=== PATIENT | female | born 1960 | race Two or more races ===

== ENCOUNTER 2023-01-08 21:28 | Inpatient (IN) | payer MEDICAID ==
[~2023-01-08] VITALS: Ht 157.5 cm; Wt 87.3 kg
[2023-01-08] MEDS ORDERED: MORPHINE SULFATE 4 MG/ML SYRINGE IVP ONE (21:45)
[2023-01-08 22:05] LABS: BASOPHILS % (AUTO) 0.9 % (0.0-2.0); EOSINOPHILS % (AUTO) 2.9 % (1.0-6.0); MONOCYTES # (AUTO) 0.6 K/uL (0.1-1.0)
[2023-01-08] MEDS ORDERED: TICA90TA PO (22:05)
[2023-01-08] MEDS ORDERED: ATOR40TA28 PO (22:05)
[2023-01-08] MEDS ORDERED: HYDR50TA36 PO (22:05)
[2023-01-08] MEDS ORDERED: CARV25 PO (22:05)
[2023-01-08 22:11] LABS: HEMATOCRIT 21.3 % (36-46); LYMPHOCYTES # (AUTO) 1.8 K/uL (1.0-4.8); LYMPHOCYTES % (AUTO) 30.2 % (22.0-44.0); MEAN CORPUSCULAR HEMOGLOBIN 30.4 pg (26.0-34.0); MEAN CORPUSCULAR HGB CONC 32.8 G/dL (31.0-37.0); MEAN CORPUSCULAR VOLUME 93 fL (80-100); MONOCYTES % (AUTO) 9.8 % (2.0-9.0); NEUTROPHILS # (AUTO) 3.4 K/uL (1.8-7.7); NEUTROPHILS % (AUTO) 56.2 % (40.0-70.0); PLATELET COUNT (AUTO) 159 K/uL (150-450); RED BLOOD CELL COUNT(AUTO) 2.29 MIL/uL (4.00-5.20); RED CELL DISTRIBUTION WIDTH 13.4 % (11.5-14.5)
[2023-01-08 22:12] LABS: CALCIUM, TOTAL 8.1 mg/dL (8.8-10.5); CREATININE 6.21 mg/dL (0.60-1.30); POTASSIUM 5.8 mmol/L (3.5-5.1)
[2023-01-08 22:14] LABS: INR 1.1 (0.9-1.1); PROTHROMBIN TIME 11.4 SEC (9.4-11.6)
[2023-01-08 22:18] LABS: ALBUMIN 2.7 g/dL (3.4-5.0); BILIRUBIN,TOTAL 0.5 mg/dL (0.1-1.0); TOTAL PROTEIN, SERUM 5.9 g/dL (6.4-8.2)
[2023-01-08 22:22] LABS: TROPONIN I-HIGH SENSITIVITY 742 ng/L (<51)
[2023-01-08 23:38] LABS: COVID AG,FIA SOURCE NASAL SWAB
[2023-01-08 23:49] LABS: SARS-COV2 (COVID) ANTIGEN,FIA Negative (Negative)
[2023-01-09] VITALS (16 sets, daily range): BP systolic 103–137; BP diastolic 37–78; PULSE 63–72; RESP 16–20; TEMP 97.7–98.5; O2SAT 99
[2023-01-09] MEDS ORDERED: HYDR30CR3 TP (01:04)
[2023-01-09] MEDS ORDERED: PANT-31 PO (01:11)
[2023-01-09] MEDS ORDERED: INSLAN SQ (01:11)
[2023-01-09] MEDS ORDERED: INSU100V42 SQ ×3 (01:11)
[2023-01-09] MEDS ORDERED: FOLI0.8T2 PO (01:11)
[2023-01-09] MEDS ORDERED: NITR0.4T50 SL (01:11)
[2023-01-09] MEDS ORDERED: ISOS60TA77 PO (01:11)
[2023-01-09] MEDS ORDERED: SEVE800T7 PO (01:12)
[2023-01-09] MEDS ORDERED: PATI8.4P PO (01:16)
[2023-01-09] MEDS ORDERED: ACET-2247 PO (01:16)
[2023-01-09 05:26] LABS: GLUCOMETER DEV NAME(LOC) ERT.5; GLUCOSE,POINT OF CARE 122 MG/DL (70-110)
[2023-01-09] MEDS ORDERED: MAGNESIUM HYDROXIDE SUSPENSION 30 ML UDCUP PO PRN (06:15)
[2023-01-09] MEDS ORDERED: DEXTROSE 50%-WATER 25 GM/50 ML SYRINGE IVP PRN (06:15)
[2023-01-09] MEDS ORDERED: ONDANSETRON HCL 4 MG/2 ML VIAL IVP PRN (06:15)
[2023-01-09] MEDS ORDERED: BISACODYL 10 MG RECTAL RECTAL SUPPOSITORY PR PRN (06:15)
[2023-01-09] MEDS ORDERED: ZOLPIDEM TARTRATE 5 MG TABLET PO PRN (06:15)
[2023-01-09 07:00] LABS: BASOPHILS % (AUTO) 0.9 % (0.0-2.0); LYMPHOCYTES # (AUTO) 1.9 K/uL (1.0-4.8); LYMPHOCYTES % (AUTO) 32.8 % (22.0-44.0); MEAN CORPUSCULAR HEMOGLOBIN 31.2 pg (26.0-34.0); MEAN CORPUSCULAR HGB CONC 33.6 G/dL (31.0-37.0); MEAN CORPUSCULAR VOLUME 93 fL (80-100); MONOCYTES # (AUTO) 0.5 K/uL (0.1-1.0); NEUTROPHILS # (AUTO) 3.1 K/uL (1.8-7.7); NEUTROPHILS % (AUTO) 53.3 % (40.0-70.0); PLATELET COUNT (AUTO) 154 K/uL (150-450); RED BLOOD CELL COUNT(AUTO) 2.22 MIL/uL (4.00-5.20); RED CELL DISTRIBUTION WIDTH 13.3 % (11.5-14.5); WHITE BLOOD COUNT (AUTO) 5.9 K/uL (4.5-11.0)
[2023-01-09 07:11] LABS: GLUCOMETER DEV NAME(LOC) 5S.1B; GLUCOSE,POINT OF CARE 114 MG/DL (70-110)
[2023-01-09 07:25] LABS: TROPONIN I-HIGH SENSITIVITY 607 ng/L (<51)
[2023-01-09 07:30] LABS: HEMATOCRIT 20.6 % (36-46); HEMOGLOBIN 6.9 g/dL (12.0-16.0)
[2023-01-09] MEDS ORDERED: HEPARIN SODIUM,PORCINE 5,000 UNITS/ML VIAL SQ SCH (08:00)
[2023-01-09 08:25] LABS: CALCIUM, TOTAL 8.2 mg/dL (8.8-10.5); CREATININE 6.57 mg/dL (0.60-1.30); POTASSIUM 5.8 mmol/L (3.5-5.1)
[2023-01-09] MEDS ORDERED: ISOSORBIDE MONONITRATE 60 MG ER TABLET PO SCH (09:00)
[2023-01-09] MEDS: DOCUSATE SODIUM 100 MG CAPSULE PO SCH ×2 (09:08→20:54)
[2023-01-09] MEDS: PANTOPRAZOLE SODIUM 40 MG DR TABLET PO SCH (09:08)
[2023-01-09] MEDS: SEVELAMER CARBONATE 800 MG TABLET PO SCH ×3 (09:08→18:19)
[2023-01-09] MEDS: ATORVASTATIN CALCIUM 40 MG TABLET PO SCH (09:08)
[2023-01-09] MEDS: HydrALAZINE HCL 50 MG TABLET PO SCH ×3 (09:19→20:53)
[2023-01-09] MEDS: CARVEDILOL 25 MG TABLET PO SCH ×2 (09:19→20:53)
[2023-01-09 12:05] LABS: GLUCOMETER DEV NAME(LOC) 5N.2C; GLUCOSE,POINT OF CARE 149 MG/DL (70-110)
[2023-01-09] MEDS: INSULIN LISPRO 100 UNITS/ML SQ PRN ×2 (12:34→17:17)
[2023-01-09] MEDS: MORPHINE SULFATE 2 MG/ML SYRINGE IVP PRN (14:21)
[2023-01-09] MEDS ORDERED: DEXTROSE 50%-WATER 25 GM/50 ML SYRINGE IVP ONE (14:30)
[2023-01-09] MEDS ORDERED: INSULIN REGULAR, HUMAN 100 UNITS/ML IVP ONE (14:30)
[2023-01-09] MEDS ORDERED: SODIUM ZIRCONIUM CYCLOSILICATE 5 GM POWDER PACKET PO ONE (14:45)
[2023-01-09] MEDS ORDERED: SODIUM CHLORIDE 0.9% 500 ML IV ONE (15:01)
[2023-01-09 15:40] LABS: TROPONIN I-HIGH SENSITIVITY 683 ng/L (<51)
[2023-01-09] MEDS: FOLIC ACID/VIT B COMPLEX AND C TABLET PO SCH (17:58)
[2023-01-09 18:06] LABS: GLUCOMETER DEV NAME(LOC) 5S.1B; GLUCOSE,POINT OF CARE 168 MG/DL (70-110)
[2023-01-09] MEDS: HYDROCODONE/ACETAMINOPHEN 5-325 MG TABLET PO PRN (18:40)
[2023-01-09] MEDS: TICAGRELOR 90 MG TABLET PO SCH ×2 (20:53→21:00)
[2023-01-09] MEDS: INSULIN GLARGINE,HUM.REC.ANLOG 100 UNITS/ML SQ SCH (20:57)
[2023-01-09 21:45] LABS: BASOPHILS % (AUTO) 0.3 % (0.0-2.0); EOSINOPHILS % (AUTO) 2.4 % (1.0-6.0); HEMATOCRIT 24.8 % (36-46); HEMOGLOBIN 8.4 g/dL (12.0-16.0); LYMPHOCYTES # (AUTO) 1.3 K/uL (1.0-4.8); LYMPHOCYTES % (AUTO) 17.7 % (22.0-44.0); MEAN CORPUSCULAR HEMOGLOBIN 31.3 pg (26.0-34.0); MEAN CORPUSCULAR HGB CONC 33.8 G/dL (31.0-37.0); MEAN CORPUSCULAR VOLUME 93 fL (80-100); MONOCYTES # (AUTO) 0.6 K/uL (0.1-1.0); MONOCYTES % (AUTO) 7.5 % (2.0-9.0); NEUTROPHILS # (AUTO) 5.5 K/uL (1.8-7.7); NEUTROPHILS % (AUTO) 72.1 % (40.0-70.0); PLATELET COUNT (AUTO) 146 K/uL (150-450); RED BLOOD CELL COUNT(AUTO) 2.68 MIL/uL (4.00-5.20); RED CELL DISTRIBUTION WIDTH 13.5 % (11.5-14.5); WHITE BLOOD COUNT (AUTO) 7.6 K/uL (4.5-11.0)
[2023-01-09 21:53] LABS: CALCIUM, TOTAL 8.1 mg/dL (8.8-10.5); CREATININE 7.47 mg/dL (0.60-1.30); POTASSIUM 5.8 mmol/L (3.5-5.1)
[2023-01-09 23:01] LABS: GLUCOMETER DEV NAME(LOC) 5N.2C; GLUCOSE,POINT OF CARE 117 MG/DL (70-110)
[2023-01-10] VITALS (17 sets, daily range): BP systolic 102–136; BP diastolic 35–54; PULSE 53–80; RESP 16–19; TEMP 97.6–98.3
[2023-01-10 02:13] LABS: BASOPHILS % (AUTO) 0.7 % (0.0-2.0); HEMATOCRIT 22.3 % (36-46); HEMOGLOBIN 7.5 g/dL (12.0-16.0); LYMPHOCYTES # (AUTO) 1.7 K/uL (1.0-4.8); LYMPHOCYTES % (AUTO) 21.4 % (22.0-44.0); MEAN CORPUSCULAR HGB CONC 33.7 G/dL (31.0-37.0); MEAN CORPUSCULAR VOLUME 92 fL (80-100); MONOCYTES # (AUTO) 0.6 K/uL (0.1-1.0); MONOCYTES % (AUTO) 7.1 % (2.0-9.0); NEUTROPHILS # (AUTO) 5.4 K/uL (1.8-7.7); NEUTROPHILS % (AUTO) 67.8 % (40.0-70.0); PLATELET COUNT (AUTO) 131 K/uL (150-450); RED BLOOD CELL COUNT(AUTO) 2.42 MIL/uL (4.00-5.20); RED CELL DISTRIBUTION WIDTH 13.6 % (11.5-14.5); WHITE BLOOD COUNT (AUTO) 7.9 K/uL (4.5-11.0)
[2023-01-10 06:48] LABS: CALCIUM, TOTAL 7.9 mg/dL (8.8-10.5); CREATININE 7.85 mg/dL (0.60-1.30)
[2023-01-10 06:49] LABS: BASOPHILS % (AUTO) 0.4 % (0.0-2.0); EOSINOPHILS % (AUTO) 3.4 % (1.0-6.0); HEMATOCRIT 22.2 % (36-46); HEMOGLOBIN 7.5 g/dL (12.0-16.0); LYMPHOCYTES # (AUTO) 1.8 K/uL (1.0-4.8); LYMPHOCYTES % (AUTO) 26.6 % (22.0-44.0); MEAN CORPUSCULAR HEMOGLOBIN 31.3 pg (26.0-34.0); MEAN CORPUSCULAR HGB CONC 33.9 G/dL (31.0-37.0); MEAN CORPUSCULAR VOLUME 93 fL (80-100); MONOCYTES # (AUTO) 0.5 K/uL (0.1-1.0); MONOCYTES % (AUTO) 7.9 % (2.0-9.0); NEUTROPHILS # (AUTO) 4.1 K/uL (1.8-7.7); NEUTROPHILS % (AUTO) 61.7 % (40.0-70.0); PLATELET COUNT (AUTO) 143 K/uL (150-450); RED CELL DISTRIBUTION WIDTH 13.5 % (11.5-14.5); WHITE BLOOD COUNT (AUTO) 6.7 K/uL (4.5-11.0)
[2023-01-10 06:54] LABS: CHOL/HDL RATIO 2.6 (3.9-5.7); MAGNESIUM 2.3 mg/dL (1.80-2.40); PHOSPHORUS 4.7 mg/dL (2.5-4.9); POTASSIUM 6.1 mmol/L (3.5-5.1)
[2023-01-10 07:06] LABS: GLUCOMETER DEV NAME(LOC) 5S.1B; GLUCOSE,POINT OF CARE 94 MG/DL (70-110)
[2023-01-10] MEDS: SEVELAMER CARBONATE 800 MG TABLET PO SCH ×3 (08:15→17:59)
[2023-01-10] MEDS: DOCUSATE SODIUM 100 MG CAPSULE PO SCH ×2 (08:15→20:24)
[2023-01-10] MEDS: FOLIC ACID/VIT B COMPLEX AND C TABLET PO SCH (08:16)
[2023-01-10] MEDS: PANTOPRAZOLE SODIUM 40 MG DR TABLET PO SCH (08:16)
[2023-01-10] MEDS: ATORVASTATIN CALCIUM 40 MG TABLET PO SCH (08:16)
[2023-01-10] MEDS ORDERED: SODIUM CHLORIDE 0.9% 2,000 ML ONE (08:30)
[2023-01-10 08:36] LABS: TROPONIN I-HIGH SENSITIVITY 631 ng/L (<51)
[2023-01-10] MEDS: CARVEDILOL 25 MG TABLET PO SCH (09:00)
[2023-01-10] MEDS: HydrALAZINE HCL 50 MG TABLET PO SCH ×2 (09:00→16:00)
[2023-01-10 12:11] LABS: GLUCOMETER DEV NAME(LOC) 5S.1B; GLUCOSE,POINT OF CARE 102 MG/DL (70-110)
[2023-01-10] MEDS ORDERED: SODIUM CHLORIDE 0.9% 250 ML IV ONE (14:56)
[2023-01-10] MEDS: PANTOPRAZOLE SODIUM 80 MG in SODIUM CHLORIDE 0.9% 100 ML IV SCH ×2 (15:06→23:33)
[2023-01-10] MEDS: INSULIN LISPRO 100 UNITS/ML SQ PRN ×2 (18:01→20:29)
[2023-01-10] MEDS: INSULIN GLARGINE,HUM.REC.ANLOG 100 UNITS/ML SQ SCH (20:27)
[2023-01-10 21:47] LABS: GLUCOMETER DEV NAME(LOC) 5N.2C; GLUCOSE,POINT OF CARE 167 MG/DL (70-110)
[2023-01-10 21:47] LABS: GLUCOMETER DEV NAME(LOC) 5N.2C; GLUCOSE,POINT OF CARE 218 MG/DL (70-110)
[2023-01-11 00:18] VITALS: BP 116/41; PULSE 76; RESP 16; TEMP 97.8
[2023-01-11 04:50] VITALS: BP 143/52; PULSE 78; RESP 16; TEMP 97.8
[2023-01-11 05:46] LABS: GLUCOMETER DEV NAME(LOC) 5S.1B; GLUCOSE,POINT OF CARE 129 MG/DL (70-110)
[2023-01-11 06:03] LABS: BASOPHILS % (AUTO) 0.6 % (0.0-2.0); EOSINOPHILS % (AUTO) 3.4 % (1.0-6.0); HEMOGLOBIN 7.6 g/dL (12.0-16.0); LYMPHOCYTES # (AUTO) 1.6 K/uL (1.0-4.8); LYMPHOCYTES % (AUTO) 25.9 % (22.0-44.0); MEAN CORPUSCULAR HEMOGLOBIN 31.1 pg (26.0-34.0); MEAN CORPUSCULAR HGB CONC 33.2 G/dL (31.0-37.0); MEAN CORPUSCULAR VOLUME 94 fL (80-100); MONOCYTES # (AUTO) 0.6 K/uL (0.1-1.0); MONOCYTES % (AUTO) 9.6 % (2.0-9.0); NEUTROPHILS # (AUTO) 3.7 K/uL (1.8-7.7); NEUTROPHILS % (AUTO) 60.5 % (40.0-70.0); PLATELET COUNT (AUTO) 141 K/uL (150-450); RED BLOOD CELL COUNT(AUTO) 2.45 MIL/uL (4.00-5.20); RED CELL DISTRIBUTION WIDTH 13.5 % (11.5-14.5); WHITE BLOOD COUNT (AUTO) 6.2 K/uL (4.5-11.0)
[2023-01-11 06:26] LABS: CALCIUM, TOTAL 7.8 mg/dL (8.8-10.5); CREATININE 5.88 mg/dL (0.60-1.30); PHOSPHORUS 4.4 mg/dL (2.5-4.9); POTASSIUM 4.9 mmol/L (3.5-5.1)
[2023-01-11 07:34] LABS: TROPONIN I-HIGH SENSITIVITY 676 ng/L (<51)
[2023-01-11 07:51] VITALS: BP 105/41; PULSE 79; RESP 19; TEMP 98.4
[2023-01-11] MEDS: DOCUSATE SODIUM 100 MG CAPSULE PO SCH ×2 (08:10→20:19)
[2023-01-11] MEDS: FOLIC ACID/VIT B COMPLEX AND C TABLET PO SCH (08:10)
[2023-01-11] MEDS: ATORVASTATIN CALCIUM 40 MG TABLET PO SCH (08:10)
[2023-01-11] MEDS: SEVELAMER CARBONATE 800 MG TABLET PO SCH ×3 (08:10→17:52)
[2023-01-11] MEDS: EPOETIN ALFA 10,000 UNITS/ML VIAL SQ SCH (08:11)
[2023-01-11 11:20] VITALS: BP 123/53; PULSE 67; RESP 18; TEMP 98.2
[2023-01-11] MEDS: PANTOPRAZOLE SODIUM 80 MG in SODIUM CHLORIDE 0.9% 100 ML IV SCH ×2 (12:14→20:18)
[2023-01-11] MEDS: BISACODYL 10 MG RECTAL RECTAL SUPPOSITORY PR SCH (12:14)
[2023-01-11 12:26] LABS: GLUCOMETER DEV NAME(LOC) 5N.2C; GLUCOSE,POINT OF CARE 190 MG/DL (70-110)
[2023-01-11] MEDS: INSULIN LISPRO 100 UNITS/ML SQ PRN ×2 (12:26→17:56)
[2023-01-11 15:24] VITALS: BP 127/50; PULSE 82; RESP 18; TEMP 98.4
[2023-01-11] MEDS: ACETAMINOPHEN 325 MG TABLET PO PRN ×2 (17:58→23:36)
[2023-01-11 18:06] LABS: GLUCOMETER DEV NAME(LOC) 5N.2C; GLUCOSE,POINT OF CARE 167 MG/DL (70-110)
[2023-01-11 19:19] VITALS: BP 104/46; PULSE 83; RESP 18; TEMP 98.3
[2023-01-11] MEDS: INSULIN GLARGINE,HUM.REC.ANLOG 100 UNITS/ML SQ SCH (20:19)
[2023-01-12] VITALS (16 sets, daily range): BP systolic 113–135; BP diastolic 45–95; PULSE 61–82; RESP 18; TEMP 97.8–98
[2023-01-12 01:06] LABS: GLUCOMETER DEV NAME(LOC) 5N.2C; GLUCOSE,POINT OF CARE 124 MG/DL (70-110)
[2023-01-12 03:06] LABS: HEPATITIS C AB (EIA) Non Reactive (Non Reactive)
[2023-01-12] MEDS: SEVELAMER CARBONATE 800 MG TABLET PO SCH ×3 (08:00→17:22)
[2023-01-12] MEDS: HYDROCODONE/ACETAMINOPHEN 5-325 MG TABLET PO PRN ×3 (08:44→18:37)
[2023-01-12] MEDS: PANTOPRAZOLE SODIUM 80 MG in SODIUM CHLORIDE 0.9% 100 ML IV SCH (08:44)
[2023-01-12] MEDS: BISACODYL 10 MG RECTAL RECTAL SUPPOSITORY PR SCH (09:00)
[2023-01-12] MEDS: MORPHINE SULFATE 2 MG/ML SYRINGE IVP PRN (10:14)
[2023-01-12 12:51] LABS: GLUCOMETER DEV NAME(LOC) 5N.2C; GLUCOSE,POINT OF CARE 109 MG/DL (70-110)
[2023-01-12] MEDS: FOLIC ACID/VIT B COMPLEX AND C TABLET PO SCH (14:04)
[2023-01-12] MEDS: ATORVASTATIN CALCIUM 40 MG TABLET PO SCH (14:04)
[2023-01-12] MEDS: DOCUSATE SODIUM 100 MG CAPSULE PO SCH ×2 (14:05→21:00)
[2023-01-12] MEDS: INSULIN LISPRO 100 UNITS/ML SQ PRN (17:22)
[2023-01-12 20:22] LABS: GLUCOMETER DEV NAME(LOC) 5N.1C; GLUCOSE,POINT OF CARE 113 MG/DL (70-110)
[2023-01-12] MEDS: INSULIN GLARGINE,HUM.REC.ANLOG 100 UNITS/ML SQ SCH (21:00)
[2023-01-12] MEDS: CIPROFLOXACIN HCL 0.2%/HYDROCORT 1% 10 ML OTIC SUSPENSION AD SCH (22:05)
[2023-01-12 22:41] LABS: GLUCOMETER DEV NAME(LOC) 5S.1B; GLUCOSE,POINT OF CARE 166 MG/DL (70-110)
[2023-01-12 22:41] LABS: GLUCOMETER DEV NAME(LOC) 5S.1B; GLUCOSE,POINT OF CARE 110 MG/DL (70-110)
[2023-01-13] MEDS: HYDROCODONE/ACETAMINOPHEN 5-325 MG TABLET PO PRN ×2 (02:07→18:49)
[2023-01-13 04:40] VITALS: BP 130/65; PULSE 70; RESP 18; TEMP 97.7
[2023-01-13 05:35] LABS: GLUCOMETER DEV NAME(LOC) 5N.1C; GLUCOSE,POINT OF CARE 167 MG/DL (70-110)
[2023-01-13] MEDS: INSULIN LISPRO 100 UNITS/ML SQ PRN ×3 (05:44→19:52)
[2023-01-13 06:35] LABS: BASOPHILS % (AUTO) 0.9 % (0.0-2.0); EOSINOPHILS % (AUTO) 2.8 % (1.0-6.0); HEMOGLOBIN 7.3 g/dL (12.0-16.0); LYMPHOCYTES # (AUTO) 1.1 K/uL (1.0-4.8); MEAN CORPUSCULAR HEMOGLOBIN 31.1 pg (26.0-34.0); MEAN CORPUSCULAR HGB CONC 33.4 G/dL (31.0-37.0); MEAN CORPUSCULAR VOLUME 93 fL (80-100); MONOCYTES # (AUTO) 0.4 K/uL (0.1-1.0); MONOCYTES % (AUTO) 8.1 % (2.0-9.0); NEUTROPHILS # (AUTO) 3.8 K/uL (1.8-7.7); NEUTROPHILS % (AUTO) 68.2 % (40.0-70.0); PLATELET COUNT (AUTO) 141 K/uL (150-450); RED BLOOD CELL COUNT(AUTO) 2.36 MIL/uL (4.00-5.20); WHITE BLOOD COUNT (AUTO) 5.5 K/uL (4.5-11.0)
[2023-01-13] MEDS ORDERED: LIDOCAINE/PF 2% 5 ML VIAL IM ONE (06:44)
[2023-01-13] MEDS ORDERED: PROPOFOL 1% 20 ML VIAL IVP ONE (06:44)
[2023-01-13 07:23] VITALS: BP 127/49; PULSE 67; RESP 18; TEMP 98
[2023-01-13 07:29] LABS: CALCIUM, TOTAL 7.9 mg/dL (8.8-10.5); CREATININE 4.34 mg/dL (0.60-1.30); POTASSIUM 4.5 mmol/L (3.5-5.1)
[2023-01-13] MEDS: SEVELAMER CARBONATE 800 MG TABLET PO SCH ×3 (08:01→17:50)
[2023-01-13] MEDS: DOCUSATE SODIUM 100 MG CAPSULE PO SCH ×2 (08:01→21:00)
[2023-01-13] MEDS: FOLIC ACID/VIT B COMPLEX AND C TABLET PO SCH (08:02)
[2023-01-13] MEDS: ATORVASTATIN CALCIUM 40 MG TABLET PO SCH (08:02)
[2023-01-13] MEDS: ASPIRIN 81 MG CHEWABLE TABLET PO SCH (08:02)
[2023-01-13] MEDS: PANTOPRAZOLE SODIUM 40 MG/VIAL IVP SCH (08:02)
[2023-01-13] MEDS: BISACODYL 10 MG RECTAL RECTAL SUPPOSITORY PR SCH (08:52)
[2023-01-13] MEDS: EPOETIN ALFA 10,000 UNITS/ML VIAL SQ SCH (08:52)
[2023-01-13] MEDS: CIPROFLOXACIN HCL 0.2%/HYDROCORT 1% 10 ML OTIC SUSPENSION AD SCH ×3 (08:54→19:51)
[2023-01-13] MEDS ORDERED: OMEPRAZOLE 20 MG CAPSULE PO SCH (09:00)
[2023-01-13 11:22] VITALS: BP 152/59; PULSE 81; RESP 18; TEMP 98.3
[2023-01-13 15:49] VITALS: BP 127/49; PULSE 77; RESP 18; TEMP 98.2
[2023-01-13 17:41] LABS: GLUCOMETER DEV NAME(LOC) 5S.1B; GLUCOSE,POINT OF CARE 196 MG/DL (70-110)
[2023-01-13 19:01] LABS: GLUCOMETER DEV NAME(LOC) 5N.1C; GLUCOSE,POINT OF CARE 130 MG/DL (70-110)
[2023-01-13 19:53] VITALS: BP 128/53; PULSE 79; RESP 18; TEMP 98.2
[2023-01-13] MEDS: INSULIN GLARGINE,HUM.REC.ANLOG 100 UNITS/ML SQ SCH (19:53)
[2023-01-13 23:25] VITALS: BP 152/59; PULSE 77; RESP 19; TEMP 97.8
[2023-01-13 23:42] LABS: GLUCOMETER DEV NAME(LOC) 5N.1C; GLUCOSE,POINT OF CARE 170 MG/DL (70-110)
[2023-01-14] VITALS (33 sets, daily range): BP systolic 112–162; BP diastolic 53–98; PULSE 71–90; RESP 16–18; TEMP 97.7–98.6
[2023-01-14] MEDS: HYDROCODONE/ACETAMINOPHEN 5-325 MG TABLET PO PRN ×2 (01:52→08:22)
[2023-01-14 06:26] LABS: BASOPHILS % (AUTO) 0.9 % (0.0-2.0); EOSINOPHILS % (AUTO) 3.9 % (1.0-6.0); HEMATOCRIT 21.7 % (36-46); HEMOGLOBIN 7.3 g/dL (12.0-16.0); LYMPHOCYTES # (AUTO) 1.9 K/uL (1.0-4.8); LYMPHOCYTES % (AUTO) 34.4 % (22.0-44.0); MEAN CORPUSCULAR HEMOGLOBIN 31.1 pg (26.0-34.0); MEAN CORPUSCULAR HGB CONC 33.4 G/dL (31.0-37.0); MEAN CORPUSCULAR VOLUME 93 fL (80-100); MONOCYTES # (AUTO) 0.6 K/uL (0.1-1.0); MONOCYTES % (AUTO) 10.7 % (2.0-9.0); NEUTROPHILS # (AUTO) 2.8 K/uL (1.8-7.7); NEUTROPHILS % (AUTO) 50.1 % (40.0-70.0); PLATELET COUNT (AUTO) 144 K/uL (150-450); RED BLOOD CELL COUNT(AUTO) 2.33 MIL/uL (4.00-5.20); RED CELL DISTRIBUTION WIDTH 14.1 % (11.5-14.5); WHITE BLOOD COUNT (AUTO) 5.5 K/uL (4.5-11.0)
[2023-01-14 06:41] LABS: CALCIUM, TOTAL 8.2 mg/dL (8.8-10.5); CREATININE 5.75 mg/dL (0.60-1.30)
[2023-01-14] MEDS: SEVELAMER CARBONATE 800 MG TABLET PO SCH ×3 (08:06→17:31)
[2023-01-14] MEDS: FOLIC ACID/VIT B COMPLEX AND C TABLET PO SCH (08:07)
[2023-01-14] MEDS: ATORVASTATIN CALCIUM 40 MG TABLET PO SCH (08:07)
[2023-01-14] MEDS: DOCUSATE SODIUM 100 MG CAPSULE PO SCH ×2 (08:08→23:25)
[2023-01-14] MEDS: ASPIRIN 81 MG CHEWABLE TABLET PO SCH (08:08)
[2023-01-14] MEDS: PANTOPRAZOLE SODIUM 40 MG/VIAL IVP SCH (08:08)
[2023-01-14] MEDS: CIPROFLOXACIN HCL 0.2%/HYDROCORT 1% 10 ML OTIC SUSPENSION AD SCH ×3 (08:09→23:25)
[2023-01-14] MEDS: BISACODYL 10 MG RECTAL RECTAL SUPPOSITORY PR SCH ×2 (08:10→08:23)
[2023-01-14 08:14] LABS: TROPONIN I-HIGH SENSITIVITY 670 ng/L (<51)
[2023-01-14 08:41] LABS: GLUCOMETER DEV NAME(LOC) 5N.1C; GLUCOSE,POINT OF CARE 115 MG/DL (70-110)
[2023-01-14 12:01] LABS: GLUCOMETER DEV NAME(LOC) 5S.1B; GLUCOSE,POINT OF CARE 160 MG/DL (70-110)
[2023-01-14] MEDS: INSULIN LISPRO 100 UNITS/ML SQ PRN ×2 (12:12→23:28)
[2023-01-14] MEDS ORDERED: LIDOCAINE/PF 1% 30 ML VIAL ONE (13:28)
[2023-01-14] MEDS ORDERED: NITROGLYCERIN 50 MG/D5% WATER 250 ML ONE (13:28)
[2023-01-14] MEDS ORDERED: HEPARIN SODIUM 1000 UNITS/NS 1,000 ML ONE (13:28)
[2023-01-14] MEDS ORDERED: VERAPAMIL HCL 2.5 MG/ML 2 ML VIAL ONE (13:28)
[2023-01-14] MEDS ORDERED: SODIUM BICARBONATE 50 MEQ/50 ML VIAL ONE (13:28)
[2023-01-14] MEDS ORDERED: IOHEXOL 300 MG/ML 100 ML VIAL ONE (13:28)
[2023-01-14] MEDS ORDERED: FentaNYL CITRATE PF 100 MCG/2 ML VIAL ONE (14:52)
[2023-01-14] MEDS ORDERED: HydrALAZINE HCL 20 MG/ML VIAL ONE (14:58)
[2023-01-14] MEDS ORDERED: LIDOCAINE 1% 30 ML/SOD BICARB 8.4% 4 ML SQ ONE (15:00)
[2023-01-14] MEDS ORDERED: SODIUM CHLORIDE 0.9% 500 ML IV ONE (15:00)
[2023-01-14] MEDS ORDERED: IOHEXOL 300 MG/ML 100 ML VIAL ICOR ONE (15:00)
[2023-01-14] MEDS ORDERED: FentaNYL CITRATE PF 100 MCG/2 ML VIAL IVP ONE (15:00)
[2023-01-14] MEDS ORDERED: HEPARIN SODIUM 1000 UNITS/NS 1,000 ML IARTER ONE (15:00)
[2023-01-14] MEDS ORDERED: HEPARIN SODIUM,PORCINE 1,000 UNITS/ML 10 ML VIAL IVP ONE (15:30)
[2023-01-14] MEDS ORDERED: CLOPIDOGREL BISULFATE 75 MG TABLET ONE (15:49)
[2023-01-14] MEDS ORDERED: CLOPIDOGREL BISULFATE 75 MG TABLET PO ONE (16:00)
[2023-01-14] MEDS ORDERED: SODIUM CHLORIDE 0.9% 2,000 ML ONE (17:17)
[2023-01-14 19:56] LABS: GLUCOMETER DEV NAME(LOC) 5S.1B; GLUCOSE,POINT OF CARE 130 MG/DL (70-110)
[2023-01-14] MEDS: INSULIN GLARGINE,HUM.REC.ANLOG 100 UNITS/ML SQ SCH (23:32)
[2023-01-14 23:46] LABS: GLUCOMETER DEV NAME(LOC) 5S.1B; GLUCOSE,POINT OF CARE 135 MG/DL (70-110)
[2023-01-15] MEDS: SOD FERRIC GLUC COMPLX/SUCROSE 125 MG in SODIUM CHLORIDE 0.9% 100 ML IV SCH ×2 (00:46→12:00)
[2023-01-15 04:15] VITALS: BP 129/59; PULSE 70; RESP 17; TEMP 98.7
[2023-01-15 07:00] LABS: CALCIUM, TOTAL 8.4 mg/dL (8.8-10.5); CREATININE 3.36 mg/dL (0.60-1.30); POTASSIUM 4.2 mmol/L (3.5-5.1)
[2023-01-15 07:02] LABS: BASOPHILS % (AUTO) 1.1 % (0.0-2.0); EOSINOPHILS % (AUTO) 3.3 % (1.0-6.0); HEMOGLOBIN 8.4 g/dL (12.0-16.0); LYMPHOCYTES # (AUTO) 1.3 K/uL (1.0-4.8); LYMPHOCYTES % (AUTO) 25.6 % (22.0-44.0); MEAN CORPUSCULAR HEMOGLOBIN 31.3 pg (26.0-34.0); MEAN CORPUSCULAR HGB CONC 33.8 G/dL (31.0-37.0); MEAN CORPUSCULAR VOLUME 93 fL (80-100); MONOCYTES # (AUTO) 0.5 K/uL (0.1-1.0); MONOCYTES % (AUTO) 9.2 % (2.0-9.0); NEUTROPHILS # (AUTO) 3.2 K/uL (1.8-7.7); NEUTROPHILS % (AUTO) 60.8 % (40.0-70.0); PLATELET COUNT (AUTO) 146 K/uL (150-450); RED CELL DISTRIBUTION WIDTH 13.8 % (11.5-14.5); WHITE BLOOD COUNT (AUTO) 5.2 K/uL (4.5-11.0)
[2023-01-15 07:46] VITALS: BP 127/55; PULSE 72; RESP 18; TEMP 98
[2023-01-15] MEDS: BISACODYL 10 MG RECTAL RECTAL SUPPOSITORY PR SCH (09:00)
[2023-01-15] MEDS: DOCUSATE SODIUM 100 MG CAPSULE PO SCH ×2 (09:15→21:08)
[2023-01-15] MEDS: CIPROFLOXACIN HCL 0.2%/HYDROCORT 1% 10 ML OTIC SUSPENSION AD SCH ×3 (09:15→21:08)
[2023-01-15] MEDS: PANTOPRAZOLE SODIUM 40 MG/VIAL IVP SCH (09:15)
[2023-01-15] MEDS: ASPIRIN 81 MG CHEWABLE TABLET PO SCH (09:16)
[2023-01-15] MEDS: SEVELAMER CARBONATE 800 MG TABLET PO SCH ×3 (09:16→18:19)
[2023-01-15] MEDS: CLOPIDOGREL BISULFATE 75 MG TABLET PO SCH (09:16)
[2023-01-15] MEDS: FOLIC ACID/VIT B COMPLEX AND C TABLET PO SCH (09:16)
[2023-01-15] MEDS: ATORVASTATIN CALCIUM 40 MG TABLET PO SCH (09:16)
[2023-01-15] MEDS: EPOETIN ALFA 10,000 UNITS/ML VIAL SQ SCH (09:17)
[2023-01-15 11:24] VITALS: BP 175/64; PULSE 85; RESP 18; TEMP 98.2
[2023-01-15] MEDS: INSULIN LISPRO 100 UNITS/ML SQ PRN ×2 (11:53→21:10)
[2023-01-15] MEDS: HYDROCODONE/ACETAMINOPHEN 5-325 MG TABLET PO PRN (15:31)
[2023-01-15 16:19] VITALS: BP 148/62; PULSE 78; RESP 18; TEMP 98
[2023-01-15 17:21] LABS: GLUCOMETER DEV NAME(LOC) 5N.1C; GLUCOSE,POINT OF CARE 165 MG/DL (70-110)
[2023-01-15 19:46] LABS: GLUCOMETER DEV NAME(LOC) 5N.1C; GLUCOSE,POINT OF CARE 132 MG/DL (70-110)
[2023-01-15] MEDS: INSULIN GLARGINE,HUM.REC.ANLOG 100 UNITS/ML SQ SCH (21:00)
[2023-01-15 21:31] LABS: GLUCOMETER DEV NAME(LOC) 5S.1B; GLUCOSE,POINT OF CARE 102 MG/DL (70-110)
[2023-01-15 22:51] LABS: GLUCOMETER DEV NAME(LOC) 5N.2C; GLUCOSE,POINT OF CARE 163 MG/DL (70-110)
[2023-01-15 23:23] VITALS: BP 157/65; PULSE 77; RESP 16; TEMP 99
[2023-01-16] VITALS (11 sets, daily range): BP systolic 130–167; BP diastolic 51–99; PULSE 55–81; RESP 16–18; TEMP 97.6–99
[2023-01-16 06:31] LABS: GLUCOMETER DEV NAME(LOC) 5N.1C; GLUCOSE,POINT OF CARE 146 MG/DL (70-110)
[2023-01-16] MEDS: FOLIC ACID/VIT B COMPLEX AND C TABLET PO SCH (07:56)
[2023-01-16] MEDS: HYDROCODONE/ACETAMINOPHEN 5-325 MG TABLET PO PRN ×3 (07:56→17:30)
[2023-01-16] MEDS: ATORVASTATIN CALCIUM 40 MG TABLET PO SCH (07:57)
[2023-01-16] MEDS: ASPIRIN 81 MG CHEWABLE TABLET PO SCH (07:57)
[2023-01-16] MEDS: DOCUSATE SODIUM 100 MG CAPSULE PO SCH ×2 (07:57→20:57)
[2023-01-16] MEDS: CLOPIDOGREL BISULFATE 75 MG TABLET PO SCH (07:57)
[2023-01-16] MEDS: SEVELAMER CARBONATE 800 MG TABLET PO SCH ×3 (07:57→17:31)
[2023-01-16] MEDS: CIPROFLOXACIN HCL 0.2%/HYDROCORT 1% 10 ML OTIC SUSPENSION AD SCH ×3 (07:58→20:58)
[2023-01-16] MEDS: PANTOPRAZOLE SODIUM 40 MG/VIAL IVP SCH (07:58)
[2023-01-16] MEDS: BISACODYL 10 MG RECTAL RECTAL SUPPOSITORY PR SCH (07:59)
[2023-01-16] MEDS: MORPHINE SULFATE 2 MG/ML SYRINGE IVP PRN ×2 (15:25→20:57)
[2023-01-16] MEDS: SOD FERRIC GLUC COMPLX/SUCROSE 125 MG in SODIUM CHLORIDE 0.9% 100 ML IV SCH (15:25)
[2023-01-16 15:31] LABS: GLUCOMETER DEV NAME(LOC) 5N.2C; GLUCOSE,POINT OF CARE 193 MG/DL (70-110)
[2023-01-16] MEDS: INSULIN LISPRO 100 UNITS/ML SQ PRN (17:32)
[2023-01-16] MEDS ORDERED: SODIUM CHLORIDE 0.9% 2,000 ML ONE (17:53)
[2023-01-16] MEDS: NITROGLYCERIN 0.4 MG SUBLINGUAL TABLET #25 SL PRN ×3 (19:59→20:19)
[2023-01-16 20:47] LABS: CALCIUM, TOTAL 8.2 mg/dL (8.8-10.5); CREATININE 4.44 mg/dL (0.60-1.30); POTASSIUM 4.5 mmol/L (3.5-5.1)
[2023-01-16] MEDS: INSULIN GLARGINE,HUM.REC.ANLOG 100 UNITS/ML SQ SCH (21:00)
[2023-01-16 21:04] LABS: TROPONIN I-HIGH SENSITIVITY 1238 ng/L (<51)
[2023-01-16 22:41] LABS: GLUCOMETER DEV NAME(LOC) 5N.2C; GLUCOSE,POINT OF CARE 124 MG/DL (70-110)
[2023-01-16 22:41] LABS: GLUCOMETER DEV NAME(LOC) 5N.2C; GLUCOSE,POINT OF CARE 159 MG/DL (70-110)
[2023-01-17] VITALS: BP 145/51; PULSE 80; RESP 18; TEMP 98.6
[2023-01-17] MEDS: MORPHINE SULFATE 2 MG/ML SYRINGE IVP PRN ×4 (02:33→20:56)
[2023-01-17 02:45] VITALS: BP 133/51
[2023-01-17 04:00] VITALS: BP 131/54; PULSE 74; TEMP 97.6
[2023-01-17] MEDS: HYDROCODONE/ACETAMINOPHEN 5-325 MG TABLET PO PRN ×3 (08:03→17:32)
[2023-01-17] MEDS: DOCUSATE SODIUM 100 MG CAPSULE PO SCH ×2 (08:03→20:57)
[2023-01-17] MEDS: ASPIRIN 81 MG CHEWABLE TABLET PO SCH (08:03)
[2023-01-17] MEDS: ATORVASTATIN CALCIUM 40 MG TABLET PO SCH (08:03)
[2023-01-17] MEDS: SEVELAMER CARBONATE 800 MG TABLET PO SCH ×3 (08:03→17:32)
[2023-01-17] MEDS: CLOPIDOGREL BISULFATE 75 MG TABLET PO SCH (08:03)
[2023-01-17] MEDS: FOLIC ACID/VIT B COMPLEX AND C TABLET PO SCH (08:03)
[2023-01-17] MEDS: CIPROFLOXACIN HCL 0.2%/HYDROCORT 1% 10 ML OTIC SUSPENSION AD SCH (08:04)
[2023-01-17] MEDS: BISACODYL 10 MG RECTAL RECTAL SUPPOSITORY PR SCH (08:04)
[2023-01-17] MEDS: PANTOPRAZOLE SODIUM 40 MG/VIAL IVP SCH (08:04)
[2023-01-17 08:30] VITALS: BP 136/64; PULSE 78; RESP 17; TEMP 98
[2023-01-17] MEDS: NITROGLYCERIN 0.4 MG SUBLINGUAL TABLET #25 SL PRN ×5 (08:42→18:30)
[2023-01-17] MEDS: ISOSORBIDE MONONITRATE 60 MG ER TABLET PO SCH (09:15)
[2023-01-17 09:19] LABS: BASOPHILS % (AUTO) 0.8 % (0.0-2.0); EOSINOPHILS % (AUTO) 3.9 % (1.0-6.0); HEMATOCRIT 25.9 % (36-46); HEMOGLOBIN 8.7 g/dL (12.0-16.0); LYMPHOCYTES # (AUTO) 1.4 K/uL (1.0-4.8); LYMPHOCYTES % (AUTO) 22.8 % (22.0-44.0); MEAN CORPUSCULAR HEMOGLOBIN 31.6 pg (26.0-34.0); MEAN CORPUSCULAR HGB CONC 33.5 G/dL (31.0-37.0); MEAN CORPUSCULAR VOLUME 95 fL (80-100); MONOCYTES # (AUTO) 0.5 K/uL (0.1-1.0); MONOCYTES % (AUTO) 8.3 % (2.0-9.0); NEUTROPHILS # (AUTO) 3.9 K/uL (1.8-7.7); NEUTROPHILS % (AUTO) 64.2 % (40.0-70.0); PLATELET COUNT (AUTO) 167 K/uL (150-450); RED BLOOD CELL COUNT(AUTO) 2.75 MIL/uL (4.00-5.20); WHITE BLOOD COUNT (AUTO) 6.1 K/uL (4.5-11.0)
[2023-01-17 10:21] LABS: TROPONIN I-HIGH SENSITIVITY 1241 ng/L (<51)
[2023-01-17] MEDS: SOD FERRIC GLUC COMPLX/SUCROSE 125 MG in SODIUM CHLORIDE 0.9% 100 ML IV SCH (11:42)
[2023-01-17] MEDS: INSULIN LISPRO 100 UNITS/ML SQ PRN ×2 (11:45→17:33)
[2023-01-17 18:02] LABS: GLUCOMETER DEV NAME(LOC) 5N.2C; GLUCOSE,POINT OF CARE 150 MG/DL (70-110)
[2023-01-17 18:02] LABS: GLUCOMETER DEV NAME(LOC) 5N.2C; GLUCOSE,POINT OF CARE 106 MG/DL (70-110)
[2023-01-17 19:56] LABS: GLUCOMETER DEV NAME(LOC) 5S.1B; GLUCOSE,POINT OF CARE 174 MG/DL (70-110)
[2023-01-17 20:10] VITALS: BP 164/75; PULSE 75; RESP 19; TEMP 98.6
[2023-01-17] MEDS: INSULIN GLARGINE,HUM.REC.ANLOG 100 UNITS/ML SQ SCH (20:57)
[2023-01-18] VITALS (16 sets, daily range): BP systolic 126–172; BP diastolic 55–82; PULSE 62–88; RESP 18; TEMP 97.6–98.7
[2023-01-18] MEDS: MORPHINE SULFATE 2 MG/ML SYRINGE IVP PRN ×3 (04:40→15:21)
[2023-01-18] MEDS: HYDROCODONE/ACETAMINOPHEN 5-325 MG TABLET PO PRN (04:57)
[2023-01-18 06:43] LABS: BASOPHILS % (AUTO) 1.1 % (0.0-2.0); EOSINOPHILS % (AUTO) 4.3 % (1.0-6.0); HEMATOCRIT 23.6 % (36-46); LYMPHOCYTES # (AUTO) 1.9 K/uL (1.0-4.8); LYMPHOCYTES % (AUTO) 28.1 % (22.0-44.0); MEAN CORPUSCULAR HEMOGLOBIN 31.8 pg (26.0-34.0); MEAN CORPUSCULAR VOLUME 94 fL (80-100); MONOCYTES # (AUTO) 0.6 K/uL (0.1-1.0); MONOCYTES % (AUTO) 8.9 % (2.0-9.0); NEUTROPHILS # (AUTO) 3.9 K/uL (1.8-7.7); NEUTROPHILS % (AUTO) 57.6 % (40.0-70.0); PLATELET COUNT (AUTO) 186 K/uL (150-450); RED BLOOD CELL COUNT(AUTO) 2.52 MIL/uL (4.00-5.20); RED CELL DISTRIBUTION WIDTH 14.3 % (11.5-14.5); WHITE BLOOD COUNT (AUTO) 6.9 K/uL (4.5-11.0)
[2023-01-18 07:27] LABS: TROPONIN I-HIGH SENSITIVITY 1268 ng/L (<51)
[2023-01-18 08:11] LABS: GLUCOMETER DEV NAME(LOC) 5N.2C; GLUCOSE,POINT OF CARE 94 MG/DL (70-110)
[2023-01-18 08:11] LABS: GLUCOMETER DEV NAME(LOC) 5N.2C; GLUCOSE,POINT OF CARE 108 MG/DL (70-110)
[2023-01-18 08:11] LABS: GLUCOMETER DEV NAME(LOC) 5N.2C; GLUCOSE,POINT OF CARE 110 MG/DL (70-110)
[2023-01-18] MEDS: SEVELAMER CARBONATE 800 MG TABLET PO SCH ×2 (08:42→15:07)
[2023-01-18] MEDS: DOCUSATE SODIUM 100 MG CAPSULE PO SCH (08:42)
[2023-01-18] MEDS: CLOPIDOGREL BISULFATE 75 MG TABLET PO SCH (08:42)
[2023-01-18] MEDS: ISOSORBIDE MONONITRATE 60 MG ER TABLET PO SCH (08:42)
[2023-01-18] MEDS: FOLIC ACID/VIT B COMPLEX AND C TABLET PO SCH (08:42)
[2023-01-18] MEDS: ATORVASTATIN CALCIUM 40 MG TABLET PO SCH (08:42)
[2023-01-18] MEDS: ASPIRIN 81 MG CHEWABLE TABLET PO SCH (08:43)
[2023-01-18] MEDS: EPOETIN ALFA 10,000 UNITS/ML VIAL SQ SCH (08:43)
[2023-01-18] MEDS ORDERED: PANTOPRAZOLE SODIUM 40 MG DR TABLET PO SCH (09:00)
[2023-01-18] MEDS: BISACODYL 10 MG RECTAL RECTAL SUPPOSITORY PR SCH (09:00)
[2023-01-18] MEDS ORDERED: EPOETIN ALFA 10,000 UNITS/ML VIAL SQ SCH (09:00)
[2023-01-18] MEDS: SOD FERRIC GLUC COMPLX/SUCROSE 125 MG in SODIUM CHLORIDE 0.9% 100 ML IV SCH (12:04)
[2023-01-18 19:51] LABS: GLUCOMETER DEV NAME(LOC) 5S.1B; GLUCOSE,POINT OF CARE 113 MG/DL (70-110)
[2023-01-18 19:51] LABS: GLUCOMETER DEV NAME(LOC) 5S.1B; GLUCOSE,POINT OF CARE 176 MG/DL (70-110)
== END 2023-01-18 17:25 | DRG 175 ==
LOC: EMS 21:29 → 5S 23:59
PROVIDERS: ADMIT Internal Medicine; ATTEND Internal Medicine
PROC: 30233N1 Transfusion of Nonautologous Red Blood Cells into Peripheral Vein, Percutaneous Approach (ICD-10-PCS; principal; 2023-01-09)
PROC: 5A1D70Z Performance of Urinary Filtration, Intermittent, Less than 6 Hours Per Day (ICD-10-PCS; 2023-01-10)
PROC: 5A1D70Z Performance of Urinary Filtration, Intermittent, Less than 6 Hours Per Day (ICD-10-PCS; 2023-01-12)
PROC: 0DJ08ZZ Inspection of Upper Intestinal Tract, Via Natural or Artificial Opening Endoscopic (ICD-10-PCS; 2023-01-12)
PROC: B41F1ZZ Fluoroscopy of Right Lower Extremity Arteries using Low Osmolar Contrast (ICD-10-PCS; 2023-01-14)
PROC: 02703ZZ Dilation of Coronary Artery, One Artery, Percutaneous Approach (ICD-10-PCS; 2023-01-14)
PROC: 4A023N7 Measurement of Cardiac Sampling and Pressure, Left Heart, Percutaneous Approach (ICD-10-PCS; 2023-01-14)
PROC: B2111ZZ Fluoroscopy of Multiple Coronary Arteries using Low Osmolar Contrast (ICD-10-PCS; 2023-01-14)
PROC: 5A1D70Z Performance of Urinary Filtration, Intermittent, Less than 6 Hours Per Day (ICD-10-PCS; 2023-01-14)
PROC: B241ZZ3 Ultrasonography of Multiple Coronary Arteries, Intravascular (ICD-10-PCS; 2023-01-14)
PROC: 5A1D70Z Performance of Urinary Filtration, Intermittent, Less than 6 Hours Per Day (ICD-10-PCS; 2023-01-16)
DX: T82.855A Stenosis of coronary artery stent, initial encounter (principal); I13.2 Hypertensive heart and chronic kidney disease with heart failure and with stage 5 chronic kidney disease, or end stage renal disease; I21.A1 Myocardial infarction type 2; D63.8 Anemia in other chronic diseases classified elsewhere; E87.1 Hypo-osmolality and hyponatremia; E11.319 Type 2 diabetes mellitus with unspecified diabetic retinopathy without macular edema; R07.89 Other chest pain; N18.6 End stage renal disease; E11.22 Type 2 diabetes mellitus with diabetic chronic kidney disease; E78.5 Hyperlipidemia, unspecified; I25.10 Atherosclerotic heart disease of native coronary artery without angina pectoris; Z20.822 Contact with and (suspected) exposure to COVID-19; E87.5 Hyperkalemia; K44.9 Diaphragmatic hernia without obstruction or gangrene; H54.8 Legal blindness, as defined in USA; K59.00 Constipation, unspecified; I50.9 Heart failure, unspecified; K21.00 Gastro-esophageal reflux disease with esophagitis, without bleeding; K29.70 Gastritis, unspecified, without bleeding; E11.40 Type 2 diabetes mellitus with diabetic neuropathy, unspecified; E11.51 Type 2 diabetes mellitus with diabetic peripheral angiopathy without gangrene; Y83.8 Other surgical procedures as the cause of abnormal reaction of the patient, or of later complication, without mention of misadventure at the time of the procedure; Z95.5 Presence of coronary angioplasty implant and graft; Z99.2 Dependence on renal dialysis; Y92.89 Other specified places as the place of occurrence of the external cause
CPT/HCPCS: 71045; 75960; 80048; 80053; 80061; 82271; 82962; 83735; 83880; 84100; 84484; 85025; 85610; 85730; 86803; 86850; 86900; 86901; 86923; 87081; 87340; 87481; 90935; 92920; 93005; 93306; 97116; 97161; 97535; 99291; C9113; G0378; J0360; J0885; J1644; J1815; J2270; J2704; J2916; J3010; J3490; J7030; J7040; J7050; P9016; Q9967; 36415-L1; 36415-TC; Z7610

== ENCOUNTER 2023-06-27 00:01 | Inpatient (IN) | payer MEDICAID ==
[~2023-06-27] VITALS: Ht 160 cm; Wt 59.1 kg
[~2023-06-27 00:01] MED LIST: ATOR40TA28 PO; CARV25 PO; FOLI0.8T2 PO; INSLAN SQ; ISOS60TA77 PO; NITR0.4T50 SL; PANT-31 PO; SEVE800T7 PO
[2023-06-27] MEDS ORDERED: ZOLPIDEM TARTRATE 5 MG TABLET PO PRN (01:00)
[2023-06-27] MEDS ORDERED: ChlorproMAZINE HCL 100 MG TABLET PO PRN (01:00)
[2023-06-27] MEDS ORDERED: LORA-1001 PO (01:23)
[2023-06-27] MEDS ORDERED: TICA90TA PO (01:23)
[2023-06-27] MEDS ORDERED: EPOE10I SQ (01:23)
[2023-06-27] MEDS ORDERED: MELA5TAB40 PO (01:23)
[2023-06-27] MEDS ORDERED: LEVE500T20 PO (01:23)
[2023-06-27] MEDS ORDERED: INSU100V SQ (01:23)
[2023-06-27] MEDS ORDERED: ALPR-705 PO (01:23)
[2023-06-27] MEDS ORDERED: BUSP15 PO (01:23)
[2023-06-27] MEDS ORDERED: NUT.237L66 PO (01:23)
[2023-06-27] MEDS ORDERED: MODA100T65 PO (01:23)
[2023-06-27] MEDS ORDERED: RANO500T27 PO (01:23)
[2023-06-27 01:32] LABS: BASOPHILS % (AUTO) 1.4 % (0.0-2.0); EOSINOPHILS % (AUTO) 3.3 % (1.0-6.0); HEMOGLOBIN 9.4 g/dL (12.0-16.0); LYMPHOCYTES # (AUTO) 1.3 K/uL (1.0-4.8); LYMPHOCYTES % (AUTO) 22.2 % (22.0-44.0); MEAN CORPUSCULAR HEMOGLOBIN 32.1 pg (26.0-34.0); MEAN CORPUSCULAR HGB CONC 33.8 G/dL (31.0-37.0); MEAN CORPUSCULAR VOLUME 95 fL (80-100); MONOCYTES # (AUTO) 0.6 K/uL (0.1-1.0); MONOCYTES % (AUTO) 9.9 % (2.0-9.0); NEUTROPHILS # (AUTO) 3.7 K/uL (1.8-7.7); NEUTROPHILS % (AUTO) 63.2 % (40.0-70.0); PLATELET COUNT (AUTO) 239 K/uL (150-450); RED BLOOD CELL COUNT(AUTO) 2.95 MIL/uL (4.00-5.20); RED CELL DISTRIBUTION WIDTH 14.4 % (11.5-14.5); WHITE BLOOD COUNT (AUTO) 5.9 K/uL (4.5-11.0)
[2023-06-27 01:35] LABS: COVID AG,FIA SOURCE NASAL SWAB
[2023-06-27 01:35] LABS: ANION GAP 9 mmol/L (8-16); CALCIUM, TOTAL 8.7 mg/dL (8.8-10.5); CARBON DIOXIDE 30 mmol/L (22-29); CHLORIDE 101 mmol/L (98-107); CREATININE 3.58 mg/dL (0.60-1.30); GLOMERULAR FILTR. RATE CALC 13 mL/min (>60); GLUCOSE,RANDOM 92 mg/dL (70-110); POTASSIUM 4.1 mmol/L (3.5-5.1); SODIUM SERUM 140 mmol/L (136-145); UREA NITROGEN, BLOOD 16 mg/dL (7-18)
[2023-06-27 01:41] LABS: ALANINE AMINOTRANSFERASE 8 U/L (12-78); ALBUMIN 2.6 g/dL (3.4-5.0); ALKALINE PHOSPHATASE 88 U/L (46-116); ASPARTATE AMINOTRANSFERASE 16 U/L (15-37); BILIRUBIN,TOTAL 0.9 mg/dL (0.1-1.0); TOTAL PROTEIN, SERUM 6.3 g/dL (6.4-8.2)
[2023-06-27 01:43] LABS: ALCOHOL, BLOOD (SERUM) < 3 mg/dL (0-10)
[2023-06-27 02:01] LABS: SARS-COV2 (COVID) ANTIGEN,FIA Negative (Negative)
[2023-06-27] MEDS: ChlorproMAZINE HCL 50 MG/2 ML AMP IM ONE (02:34)
[2023-06-27] MEDS: LORazepam 2 MG/ML VIAL IM ONE (02:35)
[2023-06-27] MEDS: ASPIRIN 81 MG CHEWABLE TABLET PO SCH (09:00)
[2023-06-27] MEDS: GABAPENTIN 300 MG CAPSULE PO SCH (09:00)
[2023-06-27] MEDS: TICAGRELOR 90 MG TABLET PO SCH (09:00)
[2023-06-27] MEDS: OLANZapine 5 MG RAPDIS TABLET PO SCH (09:00)
[2023-06-27] MEDS: CARVEDILOL 6.25 MG TABLET PO SCH (09:00)
[2023-06-27] MEDS: LevETIRAcetam 500 MG TABLET PO SCH (09:00)
[2023-06-27] MEDS: ATORVASTATIN CALCIUM 20 MG TABLET PO SCH (09:00)
[2023-06-27 17:16] LABS: GLUCOMETER DEV NAME(LOC) ER.6; GLUCOSE,POINT OF CARE 73 MG/DL (70-110)
[2023-06-27] MEDS: DEXTROSE 50%-WATER 25 GM/50 ML SYRINGE IVP PRN (20:04)
[2023-06-27 20:06] LABS: GLUCOMETER DEV NAME(LOC) ER.6; GLUCOSE,POINT OF CARE 68 MG/DL (70-110)
[2023-06-27] MEDS: LORazepam 1 MG TABLET PO PRN (20:38)
[2023-06-27] MEDS: MELATONIN 5 MG TABLET PO SCH (20:38)
[2023-06-27 21:01] LABS: GLUCOMETER DEV NAME(LOC) ER.6; GLUCOSE,POINT OF CARE 160 MG/DL (70-110)
[2023-06-28] VITALS (11 sets, daily range): BP systolic 101–143; BP diastolic 48–67; PULSE 62–80; RESP 18–20; TEMP 96.8–97.6
[2023-06-28 05:46] LABS: GLUCOMETER DEV NAME(LOC) ER.6; GLUCOSE,POINT OF CARE 82 MG/DL (70-110)
[2023-06-28 07:47] LABS: % IRON SATURATION 25.2 % (22-44)
[2023-06-28] MEDS: EPOETIN ALFA 10,000 UNITS/ML VIAL SQ SCH (11:13)
[2023-06-28 16:26] LABS: GLUCOMETER DEV NAME(LOC) ER.6; GLUCOSE,POINT OF CARE 85 MG/DL (70-110)
[2023-06-28] MEDS ORDERED: PNEUMOCOCCAL VACCINE POLYVALENT 0.5 ML SYRINGE [PPSV23] IM. ONE (17:15)
[2023-06-28 20:35] LABS: GLUCOMETER DEV NAME(LOC) 4E.2; GLUCOSE,POINT OF CARE 135 MG/DL (70-110)
[2023-06-28] MEDS ORDERED: OLANZapine 5 MG RAPDIS TABLET PO SCH (21:00)
[2023-06-29 00:51] VITALS: BP 115/56; PULSE 65; RESP 18
[2023-06-29 03:36] LABS: GLUCOMETER DEV NAME(LOC) 6S.2; GLUCOSE,POINT OF CARE 141 MG/DL (70-110)
[2023-06-29 05:48] VITALS: BP 111/56; PULSE 69; RESP 18; TEMP 97.5
[2023-06-29 07:09] VITALS: BP 114/60; PULSE 70; RESP 18; TEMP 97.8
[2023-06-29] MEDS: INSULIN LISPRO 100 UNITS/ML SQ PRN (11:40)
[2023-06-29 13:31] LABS: GLUCOMETER DEV NAME(LOC) 4E.2; GLUCOSE,POINT OF CARE 148 MG/DL (70-110)
[2023-06-29 13:31] LABS: GLUCOMETER DEV NAME(LOC) 4E.2; GLUCOSE,POINT OF CARE 89 MG/DL (70-110)
[2023-06-29 15:04] VITALS: BP 124/64; PULSE 72; RESP 20; TEMP 98.2
[2023-06-29] MEDS ORDERED: HEPARIN SODIUM,PORCINE 1,000 UNITS/ML VIAL IVP ONE (17:49)
[2023-06-29 19:26] VITALS: BP 104/58; PULSE 79; RESP 18; TEMP 98.6
[2023-06-29 23:05] LABS: GLUCOMETER DEV NAME(LOC) 6N.2B; GLUCOSE,POINT OF CARE 199 MG/DL (70-110)
[2023-06-29 23:05] LABS: GLUCOMETER DEV NAME(LOC) 6N.2B; GLUCOSE,POINT OF CARE 191 MG/DL (70-110)
[2023-06-30] VITALS (12 sets, daily range): BP systolic 102–130; BP diastolic 51–62; PULSE 65–82; RESP 18; TEMP 97–98.7
[2023-06-30] MEDS: OLANZapine 5 MG RAPDIS TABLET PO PRN (08:42)
[2023-06-30 10:00] LABS: GLUCOMETER DEV NAME(LOC) 6S.2; GLUCOSE,POINT OF CARE 116 MG/DL (70-110)
[2023-06-30] MEDS: ACETAMINOPHEN 325 MG TABLET PO PRN (10:10)
[2023-06-30] MEDS ORDERED: ASPI-1450 PO (10:44)
[2023-06-30] MEDS ORDERED: CARV6 PO (10:44)
[2023-06-30] MEDS ORDERED: ATOR20TA PO (10:44)
[2023-06-30] MEDS ORDERED: GABA-1181 PO (10:45)
[2023-06-30] MEDS ORDERED: LORA-1000 PO (10:48)
[2023-06-30] MEDS ORDERED: OLAN5TAB52 PO (10:57)
[2023-06-30 11:55] LABS: GLUCOMETER DEV NAME(LOC) 4E.2; GLUCOSE,POINT OF CARE 152 MG/DL (70-110)
[2023-06-30] MEDS ORDERED: SODIUM CHLORIDE 0.9% 1,000 ML ONE (15:02)
[2023-06-30 20:01] LABS: GLUCOMETER DEV NAME(LOC) 6N.2B; GLUCOSE,POINT OF CARE 136 MG/DL (70-110)
[2023-06-30] MEDS ORDERED: HEPARIN SODIUM,PORCINE 1,000 UNITS/ML VIAL IVP ONE (22:17)
== END 2023-06-30 22:18 | DRG 194 ==
LOC: EMS 00:03 → AHU 02:09 → 6S 06-28 12:54
PROVIDERS: ADMIT Internal Medicine; ATTEND Internal Medicine
PROC: GZHZZZZ Group Psychotherapy (ICD-10-PCS; principal; 2023-06-28)
PROC: 5A1D70Z Performance of Urinary Filtration, Intermittent, Less than 6 Hours Per Day (ICD-10-PCS; 2023-06-28)
PROC: 5A1D70Z Performance of Urinary Filtration, Intermittent, Less than 6 Hours Per Day (ICD-10-PCS; 2023-06-30)
DX: I13.2 Hypertensive heart and chronic kidney disease with heart failure and with stage 5 chronic kidney disease, or end stage renal disease (principal); N18.6 End stage renal disease; F29 Unspecified psychosis not due to a substance or known physiological condition; E11.22 Type 2 diabetes mellitus with diabetic chronic kidney disease; D63.8 Anemia in other chronic diseases classified elsewhere; E11.319 Type 2 diabetes mellitus with unspecified diabetic retinopathy without macular edema; I25.10 Atherosclerotic heart disease of native coronary artery without angina pectoris; I50.9 Heart failure, unspecified; H54.8 Legal blindness, as defined in USA; Z20.822 Contact with and (suspected) exposure to COVID-19; K21.9 Gastro-esophageal reflux disease without esophagitis; E73.9 Lactose intolerance, unspecified; J44.9 Chronic obstructive pulmonary disease, unspecified; E78.00 Pure hypercholesterolemia, unspecified; F32.A Depression, unspecified; G47.30 Sleep apnea, unspecified; F41.9 Anxiety disorder, unspecified; E11.40 Type 2 diabetes mellitus with diabetic neuropathy, unspecified; I25.2 Old myocardial infarction; Z95.5 Presence of coronary angioplasty implant and graft; Z79.4 Long term (current) use of insulin; Z79.899 Other long term (current) drug therapy; Z86.73 Personal history of transient ischemic attack (TIA), and cerebral infarction without residual deficits; Z91.199 Patient's noncompliance with other medical treatment and regimen due to unspecified reason; Z99.2 Dependence on renal dialysis
CPT/HCPCS: 70450; 71045; 80053; 82962; 83540; 83550; 85025; 87081; 87340; 87481; 90935; 99285; G0378; G0480; J0885; J1644; J2060; J3230; J7030; Q9967; 36415-L1; 36415-TC